=== PATIENT | female | born 1980 | race Caucasian/White ===

== ENCOUNTER → 2021-05-27 | Day surgery (SDC) | payer OTHER ==
[~2021-05-27] VITALS: Ht 172.7 cm; Wt 88.0 kg
[~2021-05-27] MED LIST: IV RINGERS,LACTATED 1000ML 1,000 ML IV SCH; METF500T16 PO; NORE5TAB3 PO; PROPOFOL 10 MG/ML (20ML) VIAL. IV ONE; SPIR100T4 PO
[2021-05-27 11:15] VITALS: BP 132/91
[2021-05-27 12:25] VITALS: BP 138/89
--- NOTE | 2021-05-28 17:15 | PATHOLOGY ---
[facility] Accession Number: [id number] . 01 Material submitted: . PART A: ileum - TERMINAL ILEUM BIOPSY PART B: cecum - CECUM BIOPSY PART C: colon - ASCENDING COLON BIOPSY. Modifiers: ascending PART D: colon - TRANSVERSE COLON BIOPSY. Modifiers: transverse PART E: colon - DESCENDING COLON BIOPSY. Modifiers: descending PART F: sigmoid colon - SIGMOID COLON BIOPSY PART G: rectum - RECTAL BIOPSY . 01 Clinical history: . RECTAL BLEED . 02 Diagnosis: A. Small intestine mucosa, terminal ileum biopsy: - No diagnostic abnormalities. . B. Colonic mucosa, cecal biopsies: - Focal slight acute colitis. . C. Colonic mucosa, ascending colon biopsy: - No evidence of active chronic colitis or acute colitis. . D. Colonic mucosa, transverse colon biopsy: - No evidence of active chronic colitis or acute colitis. . E. Colonic mucosa, descending colon biopsy: - No evidence of active chronic colitis or acute colitis. . F. Colonic mucosa, sigmoid colon biopsy: - Focal acute ischemic colitis. . G. Colorectal mucosa, rectal biopsy: - No evidence of active chronic colitis or acute colitis. ([facility]; 05/28/2021) [facility] 05/28/2021 1606 Local . 02 Comment: Sections of the terminal ileum biopsy reveal segments of small intestine mucosa showing no sprue-like changes or significant inflammatory changes. . Sections of the sigmoid colon biopsy reveal segments of colonic mucosa showing focal shrunken colonic glands and dropout of colonic glands associated with hemorrhage and slight acute inflammation, consistent with focal acute ischemic colitis. . Sections of the cecal biopsy focally reveal the presence of small numbers of neutrophils within the lamina propria. This is not associated with ischemic changes and is of undetermined significance. . Sections of the cecal, ascending colon, transverse colon, descending colon, and rectal biopsies show no evidence of an active chronic destructive colitis or acute ischemic colitis. ([facility]; 05/28/2021) . 02 Electronically signed: . Jared Bishop MD, Pathologist NPI- [id number] . 01 Gross description: . A. The specimen is received in formalin, labeled "Brown, Loreto, terminal ileum BX". Received are 2 segments of pale holm tissue both measuring 0.4 cm in maximum dimension. The specimen is entirely submitted in cassette A1. . B. The specimen is received in formalin, labeled "Brown, Lore[place], cecum BX". Received are 2 segments of pale holm tissue measuring 0.3 and 0.4 cm in maximum dimension. The specimen is entirely submitted in cassette B1. . C. The specimen is received in formalin, labeled "Brown, Loreto, ascending colon BX". Received are 4 segments of pale holm tissue ranging in size from 0.3-0.4 cm in maximum dimension. The specimen is entirely submitted in cassette C1. . D. The specimen is received in formalin, labeled "Brown, Loreto, transverse colon BX". Received are 4 segments of pale holm tissue ranging in size from 0.3-0.6 cm in maximum dimension. The specimen is entirely submitted in cassette D1. . E. The specimen is received in formalin, labeled "Brown, Loreto, descending colon BX". Received are 4 segments of pale holm tissue ranging in size from 0.3-0.6 cm in maximum dimension. The specimen is entirely submitted in cassette E1. . F. The specimen is received in formalin, labeled "Brown, Loreto, sigmoid colon BX". Received are multiple fragments of pale holm tissue ranging in size from 0.2-0.5 cm in maximum dimension. The specimen is entirely submitted in cassette F1. . G. The specimen is received in formalin, labeled "Brown, Loreto, rectal BX". Received are 2 segments of pale holm tissue measuring 0.5 and 0.6 cm in maximum dimension. The specimen is entirely submitted in cassette G1. ([facility]; 05/27/2021) NRI/NRI 05/27/2021 2132 Local . 02 Pathologist provided ICD-10: K52.9, K62.5 . 02 CPT . 222422, 053290, 352096, 207259, 704815, [id number], [id number] Specimen Comment: A courtesy copy of this report has been sent to [phone], [phone] Specimen Comment: [id number] Specimen Comment: Report sent to / DR OLMOS Specimen Comment: A duplicate report has been generated due to demographic updates. Performed at: 01 [facility] [address], [place] [id number] MD Gilmar Pappas MD Phone: [phone] Performed at: 02 [facility] [address] [place], [place] [id number] MD Jared Bishop MD Phone: [phone]
== END | disposition home or self-care (01) ==
LOC: ENDOS 10:36
PROVIDERS: ATTEND Internal Medicine Gastroenterology
DX: K92.1 Melena (principal); K52.9 Noninfective gastroenteritis and colitis, unspecified; K64.0 First degree hemorrhoids; K63.89 Other specified diseases of intestine; K21.9 Gastro-esophageal reflux disease without esophagitis; F41.9 Anxiety disorder, unspecified; Z79.84 Long term (current) use of oral hypoglycemic drugs; Z79.899 Other long term (current) drug therapy; Z98.890 Other specified postprocedural states; Z88.2 Allergy status to sulfonamides; Z88.8 Allergy status to other drugs, medicaments and biological substances
CPT/HCPCS: 45380; 81025; J2704; 88305

== ENCOUNTER 2021-05-31 18:01 | Emergency (ER) | payer OTHER ==
[~2021-05-31] VITALS: Ht 172.7 cm; Wt 90.0 kg
[~2021-05-31 18:01] MED LIST changes: -IV RINGERS,LACTATED 1000ML 1,000 ML IV SCH; -PROPOFOL 10 MG/ML (20ML) VIAL. IV ONE
[2021-05-31 19:13] VITALS: BP 163/86
[2021-05-31] MEDS ORDERED: FAMOTIDINE 20 MG/2 ML VIAL IVP ONE (19:30)
[2021-05-31] MEDS ORDERED: ONDANSETRON PF 4 MG/2 ML VIAL. IVP ONE (19:30)
[2021-05-31] MEDS ORDERED: IV NORMAL SALINE 1000ML BAG 1,000 ML IV ONE (19:30)
[2021-05-31 19:40] LABS: BASO # 0.1 x10^3/uL (0.0-0.2); BASO % 1 % (0-3); EOS # 0.2 x10^3/uL (0.0-0.7); EOS % 1 % (0-3); HEMATOCRIT 40.5 % (36.0-47.0); HEMOGLOBIN 14.1 g/dL (12.0-15.5); LYMPH # 3.2 x10^3/uL (1.0-4.8); LYMPH % 25 % (24-48); MEAN CORPUSCULAR HEMOGLOBIN 32 pg (25-35); MEAN CORPUSCULAR HGB CONC 35 g/dL (31-37); MEAN CORPUSCULAR VOLUME 92 fL (79-100); MONO # 0.6 x10^3/uL (0.0-1.1); MONO % 5 % (0-9); NEUT # 8.7 x10^3/uL (1.8-7.7); NEUT % 68 % (31-73); PLATELET COUNT 385 x10^3/uL (140-400); RED CELL DISTRIBUTION WIDTH 12.4 % (11.5-14.5); WHITE BLOOD COUNT 12.9 x10^3/uL (4.0-11.0)
[2021-05-31] MEDS: fentaNYL PF VIAL 100 MCG/2 ML VIAL IV PRN ×2 (19:52→21:48)
[2021-05-31 19:54] LABS: CALCIUM 9.2 mg/dL (8.5-10.1); CREATININE 0.7 mg/dL (0.6-1.0); GFR 91.3; POTASSIUM 3.7 mmol/L (3.5-5.1)
[2021-05-31 20:00] LABS: ALBUMIN 3.8 g/dL (3.4-5.0); ALBUMIN/GLOBULIN RATIO 1.1 (1.0-1.7); MAGNESIUM 1.8 mg/dL (1.8-2.4); TOTAL BILIRUBIN 0.6 mg/dL (0.2-1.0); TOTAL PROTEIN 7.4 g/dL (6.4-8.2)
--- NOTE | 2021-05-31 20:54 | RAD ---
Right upper quadrant abdominal ultrasound History: Reason: RUQ pain / Spl. Instructions: / History: Comparison: None. Technique: Transabdominal ultrasound images are obtained. Findings: The liver is normal in echotexture. The liver measures 16 cm. Ultrasound is not sensitive for detecti ng solid liver lesions. Portal flow is hepatopetal. The common bile duct diameter measures 4 mm. The gallbladder wall measures 3 mm. Per report, sonographic Lyons sign is negative. There is no chol elithiasis or pericholecystic fluid. The visualized pancreas is homogeneous. The right kidney is normal in echotexture and measures 11.4 cm. Corticomedullary differentiation is preserved. There is no hydronephrosis. IVC is unremarkable. IMPRESSION: Unremarkable right upper quadrant ultrasound. Electronically signed by: Austen Easton MD (05/31/2021 8:51 PM) [facility]
[2021-05-31] MEDS ORDERED: oxyCODONE IR 5 MG TABLET PO ONE (21:15)
[2021-05-31 21:37] LABS: BACTERIA,URINE 0 /HPF (0-FEW); RBC,URINE 0 /HPF (0-2); WBC,URINE 0 /HPF (0-4)
[2021-05-31] MEDS ORDERED: CONTRAST GIVEN. MC PRN (22:30)
--- NOTE | 2021-05-31 22:41 | RAD ---
Exam: CT of abdomen and pelvis with contrast INDICATION: Abdominal pain TECHNIQUE: Sequential axial images through the abdomen and pelvis obtained following the administrati on of 75 mL of Isovue-370 IV contrast. Sagittal and coronal reformatted images were reconstructed fro m the axial data and reviewed. Exposure: One or more of the following in the visualized dose reduction techniques were utilized for this examination: 1. Automated exposure control 2. Adjustment of the MA and/or KV according to patient size 3. Use of iterative of reconstructive technique Comparisons: None FINDINGS: Heart size is normal. No pericardial effusion. Visualized lung bases are clear. No pleural effusion. Liver, spleen, pancreas, gallbladder and adrenals are unremarkable. No perinephric inflammation or hydronephrosis. No renal or ureteral calculi are identified. Bladder is partially distended and appears thin-walled. Uterus is not enlarged. No abnormal adnexal m ass. Large and small bowel are unremarkable. Appendix is nonidentified. No free intra-abdominal air or flu id. No obstruction. Abdominal aorta has normal course and caliber. Abdominal vasculature is patent. No enlarged intra-abdominal lymph nodes are identified. No suspicious osseous lesions or acute fractures. IMPRESSION: No acute process identified within the abdomen or pelvis. Electronically signed by: Chintan Lima MD (05/31/2021 10:38 PM) [facility]
[2021-05-31] MEDS ORDERED: IOHEXOL 300 MG/ML 100ML VIAL. IV ONE (23:00)
--- NOTE | 2021-05-31 23:28 | PHYS DOC ---
Past Medical History Additional Past Medical Histor: pcos, rosacia, Past Surgical History: No Surgical History Smoking Status: Never Smoker Alcohol Use: None General Adult EDM: Chief Complaint: ABDOMINAL PAIN HPI: HPI: Patient is a 41 year old female history of PCOS, presenting to the ED today complaining of 6 out of 10 right upper quadrant abdominal pain, patient states symptoms have been going on for a while. She states she had an upper EGD as well as a colonoscopy done on May 27, 2020 and was told she has colitis. Denies any diarrhea. Denies any nausea or vomiting. Denies anything specifically exacerbating or relieving the pain. She states she is on dicyclomine and pantoprazole with minimal relief. Review of Systems: Review of Systems: Constitutional: Denies fever or chills. [] Eyes: Denies change in visual acuity. [] HENT: Denies nasal congestion or sore throat. [] Respiratory: Denies cough or shortness of breath. [] Cardiovascular: Denies chest pain or edema. [] GI: Reports right upper quadrant abdominal pain, denies nausea, vomiting, bloody stools or diarrhea. [] : Denies dysuria. [] Musculoskeletal: Denies back pain or joint pain. [] Integument: Denies rash. [] Neurologic: Denies headache, focal weakness or sensory changes. [] Psychiatric: Denies depression or anxiety. [] Heart Score: C/O Chest Pain: N/A Risk Factors: Risk Factors: DM, Current or recent (<one month) smoker, HTN, HLP, family history of CAD, obesity. Risk Scores: Score 0 - 3: 2.5% MACE over next 6 weeks - Discharge Home Score 4 - 6: 20.3% MACE over next 6 weeks - Admit for Clinical Observation Score 7 - 10: 72.7% MACE over next 6 weeks - Early Invasive Strategies Current Medications: Current Medications Medications (Trade) Dose Ordered Sig/Jaimie Start Time Stop Time Status Last Admin Dose Admin Famotidine (Pepcid Vial) 20 mg 1X ONCE 05/31/21 19:30 05/31/21 19:31 DC 05/31/21 19:51 20 MG Fentanyl Citrate (Fentanyl 2ml Vial) 50 mcg PRN Q15MIN PRN 05/31/21 19:30 06/01/21 19:29 05/31/21 21:48 50 MCG Info (CONTRAST GIVEN -- Rx MONITORING) 1 each PRN DAILY PRN 05/31/21 22:30 06/02/21 22:29 Iohexol (Omnipaque 300 Mg/ml) 75 ml 1X ONCE 05/31/21 23:00 05/31/21 23:01 DC 05/31/21 22:15 75 ML Ondansetron HCl (Zofran) 4 mg 1X ONCE 05/31/21 19:30 05/31/21 19:31 DC 05/31/21 19:51 4 MG Oxycodone HCl (Roxicodone) 5 mg 1X ONCE 05/31/21 21:15 05/31/21 21:16 UNV Sodium Chloride 1,000 ml @ 1,000 mls/hr 1X ONCE 05/31/21 19:30 05/31/21 20:29 DC 05/31/21 19:50 1,000 MLS/HR Allergies: Allergies: Allergies Coded Allergies Type Severity Reaction Last Updated Verified Sulfa (Sulfonamide Antibiotics) Allergy Intermediate Rash 05/27/21 Yes hydrochlorothiazide Allergy Intermediate Rash 05/27/21 Yes hydrocodone Allergy Intermediate Rash 05/27/21 Yes Physical Exam: PE: Constitutional: Well developed, well nourished, no acute distress, non-toxic appearance. [] HENT: Normocephalic, atraumatic, bilateral external ears normal, oropharynx moist, no oral exudates, nose normal. [] Eyes: PERRLA, EOMI, conjunctiva normal, no discharge. [] Neck: Normal range of motion, no tenderness, supple, no stridor. [] Cardiovascular:Heart rate regular rhythm, no murmur [] Lungs & Thorax: Bilateral breath sounds clear to auscultation [] Abdomen: Bowel sounds normal, soft, trace tenderness to the right upper quadrant, negative Lyons sign, no right lower quadrant tenderness, no masses, no pulsatile masses. [] Skin: Warm, dry, no erythema, no rash. [] Back: No tenderness, no CVA tenderness. [] Extremities: No tenderness, no cyanosis, no clubbing, ROM intact, no edema. [] Neurologic: Alert and oriented X 3, normal motor function, normal sensory function, no focal deficits noted. [] Psychologic: Affect normal, judgement normal, mood normal. [] Current Patient Data: Labs: Laboratory Tests Test 05/31/21 19:20 05/31/21 20:25 White Blood Count 12.9 x10^3/uL (4.0-11.0) H Red Blood Count 4.40 x10^6/uL (3.50-5.40) Hemoglobin 14.1 g/dL (12.0-15.5) Hematocrit 40.5 % (36.0-47.0) Mean Corpuscular Volume 92 fL (79-100) Mean Corpuscular Hemoglobin 32 pg (25-35) Mean Corpuscular Hemoglobin Concent 35 g/dL (31-37) Red Cell Distribution Width 12.4 % (11.5-14.5) Platelet Count 385 x10^3/uL (140-400) Neutrophils (%) (Auto) 68 % (31-73) Lymphocytes (%) (Auto) 25 % (24-48) Monocytes (%) (Auto) 5 % (0-9) Eosinophils (%) (Auto) 1 % (0-3) Basophils (%) (Auto) 1 % (0-3) Neutrophils # (Auto) 8.7 x10^3/uL (1.8-7.7) H Lymphocytes # (Auto) 3.2 x10^3/uL (1.0-4.8) Monocytes # (Auto) 0.6 x10^3/uL (0.0-1.1) Eosinophils # (Auto) 0.2 x10^3/uL (0.0-0.7) Basophils # (Auto) 0.1 x10^3/uL (0.0-0.2) Maternal Serum HCG Beta Subunit < 1 mIU/mL (0-5) Sodium Level 138 mmol/L (136-145) Potassium Level 3.7 mmol/L (3.5-5.1) Chloride Level 100 mmol/L (98-107) Carbon Dioxide Level 23 mmol/L (21-32) Anion Gap 15 (6-14) H Blood Urea Nitrogen 10 mg/dL (7-20) Creatinine 0.7 mg/dL (0.6-1.0) Estimated GFR (Cockcroft-Gault) 91.3 BUN/Creatinine Ratio 14 (6-20) Glucose Level 91 mg/dL (70-99) Calcium Level 9.2 mg/dL (8.5-10.1) Magnesium Level 1.8 mg/dL (1.8-2.4) Total Bilirubin 0.6 mg/dL (0.2-1.0) Aspartate Amino Transferase (AST) 14 U/L (15-37) L Alanine Aminotransferase (ALT) 26 U/L (14-59) Alkaline Phosphatase 65 U/L (46-116) Total Protein 7.4 g/dL (6.4-8.2) Albumin 3.8 g/dL (3.4-5.0) Albumin/Globulin Ratio 1.1 (1.0-1.7) Lipase 101 U/L (73-393) Urine Collection Type Unknown Urine Color (Auto) Colorless Urine Turbidity Clear Urine pH (Auto) 6.0 (<5.0-8.0) Urine Specific [place] 1.010 (1.000-1.030) Urine Protein (Auto) Negative mg/dL (Negative) Urine Glucose (Auto)(UA) Negative mg/dL (Negative) Urine Ketones (Auto) 40 mg/dL (Negative) Urine Blood (Auto) Negative (Negative) Urine Nitrite Negative (Negative) Urine Bilirubin (Auto) Negative (Negative) Urine Urobilinogen (Auto) Normal mg/dL (Normal) Urine Leukocyte Esterase (Auto) Negative (Negative) Urine RBC 0 /HPF (0-2) Urine WBC 0 /HPF (0-4) Urine Squamous Epithelial Cells Few /LPF Urine Bacteria 0 /HPF (0-FEW) Laboratory Tests 05/31/21 19:20 Laboratory Tests 05/31/21 19:20 Vital Signs: Vital Signs Date Time Temp Pulse Resp B/P (MAP) Pulse Ox O2 Delivery O2 Flow Rate FiO2 05/31/21 21:48 16 99 Room Air 05/31/21 19:13 98.4 80 163/86 (111) 98.4 EKG: EKG: [] Radiology/Procedures: Radiology/Procedures: []PROCEDURE: CT ABD PELV W/ IV CONTRST ONLY Exam: CT of abdomen and pelvis with contrast INDICATION: Abdominal pain TECHNIQUE: Sequential axial images through the abdomen and pelvis obtained following the administration of 75 mL of Isovue-370 IV contrast. Sagittal and coronal reformatted images were reconstructed from the axial data and reviewed. Exposure: One or more of the following in the visualized dose reduction techniques were utilized for this examination: 1. Automated exposure control 2. Adjustment of the MA and/or KV according to patient size 3. Use of iterative of reconstructive technique Comparisons: None FINDINGS: Heart size is normal. No pericardial effusion. Visualized lung bases are clear. No pleural effusion. Liver, spleen, pancreas, gallbladder and adrenals are unremarkable. No perinephric inflammation or hydronephrosis. No renal or ureteral calculi are identified. Bladder is partially distended and appears thin-walled. Uterus is not enlarged. No abnormal adnexal mass. Large and small bowel are unremarkable. Appendix is nonidentified. No free intra-abdominal air or fluid. No obstruction. Abdominal aorta has normal course and caliber. Abdominal vasculature is patent. No enlarged intra-abdominal lymph nodes are identified. No suspicious osseous lesions or acute fractures. IMPRESSION: No acute process identified within the abdomen or pelvis. Electronically signed by: Chintan Mendenhall MD (05/31/2021 10:38 PM) [facility] DICTATED and SIGNED BY: CHINTAN MENDENHALL MD DATE: 05/31/212234 PROCEDURE: ABDOMEN LTD Right upper quadrant abdominal ultrasound History: Reason: RUQ pain / Spl. Instructions: / History: Comparison: None. Technique: Transabdominal ultrasound images are obtained. Findings: The liver is normal in echotexture. The liver measures 16 cm. Ultrasound is not sensitive for detecting solid liver lesions. Portal flow is hepatopetal. The common bile duct diameter measures 4 mm. The gallbladder wall measures 3 mm. Per report, sonographic Lyons sign is negative. There is no cholelithiasis or pericholecystic fluid. The visualized pancreas is homogeneous. The right kidney is normal in echotexture and measures 11.4 cm. Corticomedullary differentiation is preserved. There is no hydronephrosis. IVC is unremarkable. IMPRESSION: Unremarkable right upper quadrant ultrasound. Electronically signed by: Austen Easton MD (05/31/2021 8:51 PM) [facility] DICTATED and SIGNED BY: AUSTEN EASTON MD DATE: 05/31/212048 Course & Med Decision Making: Course & Med Decision Making Pertinent Labs and Imaging studies reviewed. (See chart for details) This a 43-year-old female patient presented to the ED today complaining of right upper quadrant abdominal pain, symptoms have been going on for couple weeks. She states she had an upper GI as well as a colonoscopy done on May 31, 2021 and was told she has colitis. She is currently on dicyclomine and pantoprazole with no improvement. CBC with a WBC of 12.9, CMP with no acute findings, UA negative for infection, right upper quadrant ultrasound is negative, patient does have requested CT of the abdomen and pelvis which was negative for any acute findings. She was reassured, discharged home. She has an appointment for PIPIDA scan next week. She has here for follow-up as well as a PCP. She was discharged to home and instructed to follow-up with her own doctors in the course of this week. Dragon Disclaimer: Dragon Disclaimer: This electronic medical record was generated, in whole or in part, using a voice recognition dictation system. Departure Departure Impression: Primary Impression: Right upper quadrant pain Disposition: HOME / SELF CARE / HOMELESS Condition: STABLE Referrals: FELICIANO OLMOS PA-C (PCP) followup as soon as you can Patient Instructions: Abdominal Pain (Nonspecific) Additional Instructions: You were evaluated in the emergency room for abdominal pain, your lab work is negative for any acute findings, your CT of the abdomen and pelvis is negative, your right upper quadrant ultrasound is negative. Please follow-up with your specialist and primary care doctor in the course of this week or next week. Continue taking your pantopanzole and dicyclomine CARLOS A AMADOR APRN May 31, 2021 23:28
== END 2021-06-01 00:14 | disposition home or self-care (01) ==
LOC: ER 18:01
DX: R10.11 Right upper quadrant pain (principal); Z88.2 Allergy status to sulfonamides; Z88.5 Allergy status to narcotic agent; Z88.8 Allergy status to other drugs, medicaments and biological substances
CPT/HCPCS: 36415; 74177; 76705; 80053; 81001; 81025; 83690; 83735; 84702; 85025; 96361; 96374; 96375; 99285; J2405; J3010; J3490; J7030; Q9967